=== PATIENT | male | born 1960 | race African-American/Black ===

== ENCOUNTER 2016-10-03 18:16 | Emergency (ER) | payer OTHER ==
[2016-10-03 18:21] VITALS: BP 121/69; PULSE 106; TEMP 98; BMI 24.7
[2016-10-03] MEDS ORDERED: ONDANSETRON 4 MG/2 ML VIAL IVPB STA (18:30)
[2016-10-03] MEDS ORDERED: SODIUM CHLORIDE 1,000 ML IV STA (18:30)
--- NOTE | 2016-10-03 18:30 | PDOC ---
History of Present Illness - History of Present Illness Initial Comments: 10/03/16 20:46 The patient is a 55 year old male, with a significant past medical history of diabetes and seizure disorder (9 years; last episode 5 days ago), who presents to the emergency department with abdominal discomfort, nausea, vomiting, diarrhea today. The patient reports intermittent abdominal cramping since yesterday, but denies any discomfort at this time. He reports one episode of vomiting today, nonbilious/nonbloody. He reports 5 episodes of loose, watery, brown, nonbloody stool today. The patient also reports feeling sweaty and cold, but denies having a fever. He denies chest pain, shortness of breath, headache and dizziness. He denies fever and constipation. He denies dysuria, frequency, urgency and hematuria. Allergies: NKDA Social history: occasional alcohol consumption, denies tobacco or illicit drug use. PCP - Dr. Jackson <Jessica Baird - Last Filed: 10/03/16 22:29> <Carlee De Souza - Last Filed: 10/05/16 01:58> - General Chief Complaint: Pain Stated Complaint: VOMITING/DIARRHEA Time Seen by Provider: 10/03/16 18:29 Past History <Jessica Baird - Last Filed: 10/03/16 22:29> - Past Medical History Diabetes: Yes Seizures: Yes - Psycho/Social/Smoking Cessation Hx Suicidal Ideation: No Smoking History: Never smoked Information on smoking cessation initiated: No <Carlee De Souza - Last Filed: 10/05/16 01:58> - Past Medical History Allergies/Adverse Reactions: Allergies Allergy/AdvReac Type Severity Reaction Status Date / Time No Known Allergies Allergy Verified 10/03/16 18:21 Home Medications: Ambulatory Orders Ondansetron [Zofran Odt -] 4 mg SL BID PRN #10 od.tablet 10/03/16 Sitagliptin Phos/Metformin HCl [Janumet 50-1,000 mg Tablet] 1 each PO DAILY Review of Systems - Review of Systems Able to Perform ROS?: Yes Comments:: 10/03/16 20:47 CONSTITUTIONAL: Absent: fever, chills, diaphoresis, generalized weakness, malaise, loss of appetite HEENT: Absent: rhinorrhea, nasal congestion, throat pain, throat swelling, difficulty swallowing, mouth swelling, ear pain, eye pain, visual Changes CARDIOVASCULAR: Absent: chest pain, syncope, palpitations, irregular heart rate, lightheadedness , peripheral edema RESPIRATORY: Absent: cough, shortness of breath, dyspnea with exertion, orthopnea, wheezing, stridor, hemoptysis GASTROINTESTINAL: (+) abdominal cramping, nausea, vomiting, diarrhea. Absent: abdominal distension , constipation, melena, hematochezia GENITOURINARY: Absent: dysuria, frequency, urgency, hesitancy, hematuria, flank pain, genital pain MUSCULOSKELETAL: Absent: myalgia, arthralgia, joint swelling SKIN: Absent: rash, itching, pallor HEMATOLOGIC/IMMUNOLOGIC: Absent: easy bleeding, easy bruising, lymphadenopathy, frequent infections ENDOCRINE: Absent: unexplained weight gain, unexplained weight loss, heat intolerance, cold intolerance NEUROLOGIC: Absent: headache, focal weakness or paresthesias, dizziness, unsteady gait, seizure, mental status changes, bladder or bowel incontinence PSYCHIATRIC: Absent: anxiety, depression, suicidal or homicidal ideation, hallucinations. <Jessica Baird - Last Filed: 10/03/16 22:29> *Physical Exam - Vital Signs Last Vital Signs Temp Pulse Resp BP Pulse Ox 98 F 106 H 18 121/69 99 10/03/16 18:17 10/03/16 18:17 10/03/16 18:17 10/03/16 18:17 10/03/16 18:17 - Physical Exam Comments: 10/03/16 20:48 GENERAL: Well developed, well nourished. Awake and alert. No acute distress. HEENT: (+) Dry mucous membranes. Normocephalic, atraumatic. PERRLA, EOMI. No conjunctival pallor. Sclera are non-icteric. Oropharynx is clear. NECK: Supple. Full ROM. No JVD. Carotid pulses 2+ and symmetric, without bruits. No thyromegaly. No lymphadenopathy. CARDIOVASCULAR: Regular rate and rhythm. No murmurs, rubs, or gallops. Distal pulses are 2+ and symmetric. PULMONARY: No evidence of respiratory distress. Lungs clear to auscultation bilaterally. No wheezing, rales or rhonchi. ABDOMINAL: Soft. Non-tender. Non-distended. No rebound or guarding. No organomegaly. Normoactive bowel sounds. MUSCULOSKELETAL Normal range of motion at all joints. No bony deformities or tenderness. No CVA tenderness. EXTREMITIES: No cyanosis. No clubbing. No edema. No calf tenderness. SKIN: (+) vitiligo. Warm and dry. Normal capillary refill. No rashes. No jaundice. NEUROLOGICAL: Alert, awake, appropriate. Cranial nerves 2-12 intact. Normoreflexic in the upper and lower extremities. Normal speech. Toes are down-going bilaterally. Gait is normal without ataxia. PSYCHIATRIC: Cooperative. Good eye contact. Appropriate mood and affect. <Jessica Baird - Last Filed: 10/03/16 22:29> - Vital Signs Last Vital Signs Temp Pulse Resp BP Pulse Ox 98 F 106 H 18 121/69 99 10/03/16 18:17 10/03/16 18:17 10/03/16 18:17 10/03/16 18:17 10/03/16 18:17 <Carlee De Souza - Last Filed: 10/05/16 01:58> Heart Score/ECG Review - ECG Intrepretation Comment:: 10/03/16 22:29 EKG was read by Dr. De Souza at 22:20 Impression: Normal sinus rhythm Vent.Rate: 86 bpm <Jessica Baird - Last Filed: 10/03/16 22:29> ED Treatment Course - LABORATORY CBC & Chemistry Diagram: 10/03/16 18:42 10/03/16 18:42 - ADDITIONAL ORDERS Additional order review: Laboratory Results 10/03/16 18:42 Sodium 137 Potassium 4.9 Chloride 101 Carbon Dioxide 25 Anion Gap 11 BUN 20 H Creatinine 1.0 Creat Clearance w eGFR > 60 Random Glucose 195 H Calcium 8.8 Total Bilirubin 0.6 AST 38 H ALT 68 Alkaline Phosphatase 92 Total Protein 7.0 Albumin 3.7 10/03/16 18:42 RBC 5.12 MCV 93.3 MCHC 33.1 RDW 13.5 MPV 10.5 Neutrophils % 73.8 Lymphocytes % 12.5 Monocytes % 9.0 Eosinophils % 4.5 Basophils % 0.2 - Medications Given in the ED: ED Medications Discontinued Medications Generic Name Dose Route Start Last Admin Trade Name Freq PRN Reason Stop Dose Admin Sodium Chloride 1,000 mls @ 1,000 mls/hr 10/03/16 18:30 10/03/16 19:05 Normal Saline - IV 10/03/16 19:29 1,000 mls/hr ASDIR STA Administration Ondansetron HCl 4 mg 10/03/16 18:30 10/03/16 18:59 Zofran Injection IVPB 10/03/16 18:31 4 mg ONCE STA Administration <Jessica Baird - Last Filed: 10/03/16 22:29> - LABORATORY CBC & Chemistry Diagram: 10/03/16 18:42 10/03/16 18:42 <Carlee De Souza - Last Filed: 10/05/16 01:58> Medical Decision Making - Medical Decision Making 10/05/16 01:54 55 yo male p/w NVD . pmh diabetes -no fever -benign abd exam reviewed labs ,glucose 195, pt is not acidotic -pt received IVF,antiemetics -symptoms resolved and pt dischaged home 10/05/16 01:56 <Carlee De Souza - Last Filed: 10/05/16 01:58> *DC/Admit/Observation/Transfer - Attestations Scribe Attestion: 10/03/16 20:48 Documentation prepared by Jessica Baird, acting as district medical examiner for Carlee De Souza MD <Jessica Baird - Last Filed: 10/03/16 22:29> <Carlee De Souza - Last Filed: 10/05/16 01:58> Diagnosis at time of Disposition: Gastroenteritis - Discharge Dispostion Disposition: HOME Condition at time of disposition: Stable - Prescriptions Prescriptions: Ondansetron [Zofran Odt -] 4 mg SL BID PRN #10 od.tablet PRN Reason: Nausea And/Or Vomiting - Referrals Referrals: Romeo Jackson MD [Primary Care Provider] - - Patient Instructions Printed Discharge Instructions: DI for Viral Gastroenteritis -- Adult Additional Instructions: please picker packer your medicine at your pharmacy advance your diet as tolerated return if your symptoms worsen
[2016-10-03] MEDS ORDERED: ONDANSETRON 4 MG/2 ML VIAL ONE (18:55)
[2016-10-03 19:01] LABS: BASOPHIL 0.2 % (0-2.0); EOSINOPHIL 4.5 % (0-4.5); MCH 30.8 pg (25.7-33.7); MCHC 33.1 g/dl (32.0-35.9); MEAN CELL VOLUME 93.3 fl (80-96); MEAN PLT VOLUME 10.5 fl (7.5-11.1); NEUTROPHILS 73.8 % (42.8-82.8); PLATELET COUNT 188 K/MM3 (134-434); RDW 13.5 % (11.9-15.9); WHITE BLOOD COUNT 8.7 K/mm3 (4.0-10.0)
[2016-10-03 19:23] LABS: ALBUMIN 3.7 g/dl (3.4-5.0); ALK PHOS 92 U/L (45-117); ANION GAP 11 (8-16); BILIRUBIN,TOTAL 0.6 mg/dL (0.2-1.0); CALCIUM 8.8 mg/dL (8.5-10.1); CO2 25 mmol/L (21-32); GLUCOSE,RANDOM 195 mg/dL (74-106); SGPT/ALT 68 U/L (12-78)
[2016-10-03 19:25] LABS: SGOT/AST 38 U/L (15-37)
[2016-10-03] MEDS ORDERED: ONDANSETRON *ODT* 4 MG TABLET SL ONE (22:06)
[2016-10-03 22:27] LABS: URINE APPEARANCE CLEAR; URINE BILIRUBIN NEGATIVE (NEGATIVE); URINE BLOOD NEGATIVE (NEGATIVE); URINE COLOR YELLOW; URINE GLUCOSE (UA) NEGATIVE (NEGATIVE); URINE KETONE 1+ (NEGATIVE); URINE LEUK ESTERASE NEGATIVE (NEGATIVE); URINE NITRITE NEGATIVE (NEGATIVE); URINE PROTEIN NEGATIVE (NEGATIVE); URINE UROBILINOGEN NEGATIVE E.U./dl (0.2-1.0)
--- NOTE | 2016-10-04 16:19 | EKG ---
Test Reason : Blood Pressure : / mmHG Vent. Rate : 086 BPM Atrial Rate : 086 BPM P-R Int : 162 ms QRS Dur : 092 ms QT Int : 356 ms P-R-T Axes : 068 026 048 degrees QTc Int : 426 ms NORMAL SINUS RHYTHM NORMAL ECG NO PREVIOUS ECGS AVAILABLE Confirmed by TATA LEYVA MD ([id number]) on 10/04/2016 4:19:33 PM Referred By: Confirmed By:TATA LEYVA MD
== END 2016-10-03 22:47 | disposition home or self-care (01) ==
LOC: JER 18:16
PROC: 3E0337Z Introduction of Electrolytic and Water Balance Substance into Peripheral Vein, Percutaneous Approach (ICD-10-PCS; principal; 2016-10-03)
PROC: 3E033GC Introduction of Other Therapeutic Substance into Peripheral Vein, Percutaneous Approach (ICD-10-PCS; 2016-10-03)
DX: K52.9 Noninfective gastroenteritis and colitis, unspecified (principal); E11.9 Type 2 diabetes mellitus without complications; Z79.84 Long term (current) use of oral hypoglycemic drugs; G40.909 Epilepsy, unspecified, not intractable, without status epilepticus
CPT/HCPCS: 36415; 80053; 81003; 85025; 93005; 93010; 99282-25

== ENCOUNTER 2021-11-27 11:51 | Emergency (ER) | payer OTHER ==
[2021-11-27 12:05] VITALS: BP 125/73; TEMP 99.2; BMI 23.7
[2021-11-27] MEDS ORDERED: SODIUM CHLORIDE 1,000 ML IV STA (12:57)
[2021-11-27] MEDS ORDERED: INSULIN REGULAR HUMAN 100 UNITS/ML *VIAL* (FOR IVP) IVPUSH ONE (12:57)
[2021-11-27 13:43] LABS: BASO % 1.3 % (0-2.0); EOS % 0.7 % (0-4.5); EPI CELLS 9 /uL (0-25.1); HEMATOCRIT 41.9 % (35.4-49); HYALINE CASTS 1 /uL (0-3.1); LYMPH % 17.7 % (8-40); MCH 31.3 pg (25.7-33.7); MCHC 33.4 g/dl (32.0-35.9); MEAN CELL VOLUME 93.8 fl (80-96); MEAN PLT VOLUME 10.1 fl (7.5-11.1); NEUT % 68.3 % (42.8-82.8); PLATELET COUNT 154 10^3/uL (134-434); RBC 4.47 M/mm3 (4.00-5.60); RDW 12.7 % (11.9-15.9); URINE APPEARANCE CLEAR; URINE BACTERIA 0 /uL (0-1359); URINE BILIRUBIN NEGATIVE (NEGATIVE); URINE COLOR YELLOW; URINE GLUCOSE (UA) 3+ (NEGATIVE); URINE KETONE 1+ (NEGATIVE); URINE LEUK ESTERASE NEGATIVE (NEGATIVE); URINE NITRITE NEGATIVE (NEGATIVE); URINE PROTEIN 1+ (NEGATIVE); URINE RBC 6 /uL (0-23.9); URINE WBC 6 /uL (0-25.8); WHITE BLOOD COUNT 7.3 K/mm3 (4.0-10.0)
[2021-11-27 13:59] LABS: VENOUS BASE EXCESS 2.6 mmol/L (-2-2); VENOUS O2 SATURATION 20.9 % (70-80); VENOUS PCO2 51.1 mmHg (38-52); VENOUS PH 7.371 (7.310-7.410)
[2021-11-27 14:12] LABS: CALCIUM 9.1 mg/dL (8.5-10.1)
[2021-11-27 14:13] LABS: BLOOD UREA NITROGEN 17.6 mg/dL (7-18)
[2021-11-27 14:17] LABS: BILIRUBIN,TOTAL 1.2 mg/dL (0.2-1); TOT PROT 7.5 g/dl (6.4-8.2)
[2021-11-27 14:19] LABS: CREATININE 1.3 mg/dL (0.55-1.3)
[2021-11-27 14:46] VITALS: PULSE 83
== END 2021-11-27 15:37 | disposition home or self-care (01) ==
LOC: JER 11:51
PROC: 3E033GC Introduction of Other Therapeutic Substance into Peripheral Vein, Percutaneous Approach (ICD-10-PCS; principal; 2021-11-27)
DX: E11.65 Type 2 diabetes mellitus with hyperglycemia (principal)
CPT/HCPCS: 36415; 80053; 80177; 81003; 82010; 82803; 82962; 85025; 87086; 99284-25

== ENCOUNTER 2025-04-04 06:48 | Day surgery (SDC) | payer OTHER ==
[2025-04-03 12:49] VITALS: BMI 23.0
[2025-04-04] MEDS ORDERED: PROPOFOL 160 ML ONE (06:57)
[2025-04-04] MEDS ORDERED: LIDOCAINE HCL/PF 2% SDV 5ML VIAL ONE (06:57)
[2025-04-04 07:13] VITALS: RESP 18
[2025-04-04 09:16] VITALS: BP 101/53; PULSE 63; TEMP 97.7
== END 2025-04-04 09:30 | disposition home or self-care (01) ==
LOC: FASU-ENDO 06:48
PROVIDERS: ATTEND Internal Medicine Gastroenterology
PROC: 0DJD8ZZ Inspection of Lower Intestinal Tract, Via Natural or Artificial Opening Endoscopic (ICD-10-PCS; principal; 2025-04-04 08:18)
DX: Z12.11 Encounter for screening for malignant neoplasm of colon (principal); K62.89 Other specified diseases of anus and rectum
CPT/HCPCS: 82962

== ENCOUNTER 2025-04-11 06:48 | Day surgery (SDC) | payer OTHER ==
[2025-04-01 13:48] VITALS: BMI 23.0
[2025-04-11] MEDS ORDERED: LIDOCAINE HCL/PF 2% SDV 5ML VIAL ONE (07:14)
[2025-04-11] MEDS ORDERED: PROPOFOL 160 ML ONE (07:14)
[2025-04-11] MEDS ORDERED: SIMETHICONE 40 MG/0.6 ML BOTTLE ONE (07:32)
[2025-04-11 09:05] VITALS: TEMP 97.6
[2025-04-11 09:08] VITALS: BP 116/63; PULSE 60; RESP 19
== END 2025-04-11 09:01 | disposition home or self-care (01) ==
LOC: FASU-ENDO 06:48
PROVIDERS: ATTEND Internal Medicine Gastroenterology
PROC: 0DB78ZX Excision of Stomach, Pylorus, Via Natural or Artificial Opening Endoscopic, Diagnostic (ICD-10-PCS; 2025-04-11)
PROC: 0DB68ZX Excision of Stomach, Via Natural or Artificial Opening Endoscopic, Diagnostic (ICD-10-PCS; 2025-04-11)
PROC: 0DB98ZX Excision of Duodenum, Via Natural or Artificial Opening Endoscopic, Diagnostic (ICD-10-PCS; principal; 2025-04-11 08:19)
DX: K29.50 Unspecified chronic gastritis without bleeding (principal); K31.89 Other diseases of stomach and duodenum
CPT/HCPCS: 82962; 88305-TC; 88342-TC